=== PATIENT | female | born 1955 | race Caucasian/White ===

== ENCOUNTER → 2019-12-06 | Outpatient (REF) | payer OTHER, MEDICAID | LOC: M LAB REF 16:37 | PROVIDERS: ATTEND Dermatology | DX: C43.61 Malignant melanoma of right upper limb, including shoulder (principal); C44.509 Unspecified malignant neoplasm of skin of other part of trunk ==

== ENCOUNTER → 2019-12-24 | Outpatient (REF) | payer OTHER, MEDICAID | LOC: M LAB REF 14:00 | PROVIDERS: ATTEND Dermatology | DX: C43.61 Malignant melanoma of right upper limb, including shoulder (principal) ==

== ENCOUNTER → 2020-01-03 | Outpatient (REF) | payer OTHER, MEDICAID | LOC: M LAB REF 18:47 | PROVIDERS: ATTEND Dermatology | DX: S81.801D Unspecified open wound, right lower leg, subsequent encounter (principal); X58.XXXD Exposure to other specified factors, subsequent encounter ==

== ENCOUNTER → 2020-01-18 | Outpatient (REF) | payer OTHER, MEDICAID | LOC: M LAB REF 17:20 | PROVIDERS: ATTEND Dermatology | DX: Z11.2 Encounter for screening for other bacterial diseases (principal) ==

== ENCOUNTER → 2020-02-15 | Outpatient (REF) | payer OTHER, MEDICAID | LOC: M LAB REF 18:23 | PROVIDERS: ATTEND Dermatology | DX: L90.5 Scar conditions and fibrosis of skin (principal) ==

== ENCOUNTER → 2021-02-25 | Outpatient (REF) | payer OTHER, MEDICAID | LOC: M LAB REF 14:03 | PROVIDERS: ATTEND Physician Assistant | DX: C44.319 Basal cell carcinoma of skin of other parts of face (principal) ==

== ENCOUNTER → 2022-03-02 | Outpatient (REF) | payer OTHER, MEDICAID | LOC: M SFHCDERM 16:54 | PROVIDERS: ATTEND Nurse Practitioner Family | DX: D04.22 Carcinoma in situ of skin of left ear and external auricular canal (principal) ==